=== PATIENT | female | born 1990 | race African-American/Black ===

== ENCOUNTER 2017-04-09 03:39 | Emergency (ER) | payer BC ==
[2017-04-09] MEDS ORDERED: HYDROcodone/Acetaminophen 10/325 mg Tablet ONE (04:09)
[2017-04-09] MEDS ORDERED: Mag-Al 1200 mg/1200 mg/30 ML UDCUP ONE (04:10)
[2017-04-09] MEDS ORDERED: Lidocaine Viscous Sol 2% 15 ml UD Cup ONE (04:10)
[2017-04-09 04:26] LABS: #Basophils 0.1 thou/uL (0.0-0.2); #Eosinphils 0.1 thou/uL (0.0-0.7); #Lymphocytes 1.6 thou/uL (1.20-3.40); #Monocytes 0.4 thou/uL (0.11-0.59); #Neutrophils 4.4 thou/uL (1.40-6.50); %Basophils 0.8 % (0.0-1.0); %Lymphocytes 24.7 % (21.0-51.0); %Monocytes 5.6 % (0.0-10.0); Hematocrit 40.1 % (36.0-47.0); Mean Platelet Volume 7.4 fL (7.4-10.4); Red Blood Cell (RBC) Count 4.28 mill/uL (4.20-5.40); White Blood Cell (WBC) Count 6.5 thou/uL (4.8-10.8)
[2017-04-09 04:46] LABS: ALT (SGPT) 15 U/L (8-55); AST (SGOT) 22 U/L (5-34); Alkaline Phosphatase 40 U/L (40-150); Anion Gap 10 mmol/L (10-20); BUN (Urea Nitrogen) 9 mg/dL (7.0-18.7); Bilirubin, Total 0.4 mg/dL (0.2-1.2); Calc. Creatinine Clearance 0 mL/min (70-130); Calcium 9.7 mg/dL (7.8-10.44); Carbon Dioxide 26 mmol/L (22-29); Chloride 104 mmol/L (98-107); Estimated GFR-MDRD Greater than 90; Globulin 3.3 g/dL (2.4-3.5); Lipase 24 U/L (8-78); Protein, Total 7.3 g/dL (6.0-8.3)
--- NOTE | 2017-04-09 08:02 | ULT ---
PRELIMINARY REPORT/[facility]/EMERGENCY AFTER HOURS PROCEDURE: EXAM: US Abdomen Limited, Right Upper Quadrant EXAM DATE/TIME: Exam ordered 04/09/2017 4:16 AM CLINICAL HISTORY: 26 years old, female; Pain and signs and symptoms; Nausea; Abdominal pain; Other: Epigastric to ruq; Patient HX: Abd pain x 6 month (on/off), worse tonight TECHNIQUE: Real-time ultrasound of the right upper quadrant with image documentation. COMPARISON: No relevant prior studies available. FINDINGS: Liver: Normal. No mass. No intrahepatic bile duct dilation. Gallbladder: Cholelithiasis is present. A negative sonographic Hollins sign is reported. Gallbladder wall thickness measures approximately 2 mm per Common bile duct: Common bile duct measures approximately 4 mm. No stones. No dilation. Pancreas: The visualized pancreas is unremarkable. Right kidney: The RIGHT kidney measures 11.4 x 4.5 x 5.2 cm. No stones. No hydronephrosis. IMPRESSION: Cholelithiasis is present. No ultrasound evidence for acute cholecystitis. Thank you for allowing us to participate in the care of your patient. Dictated and Authenticated by: Hussein Quinn MD 04/09/2017 4:59 AM Central Time ([place] \T\ [place]) FINAL REPORT RIGHT UPPER QUADRANT ULTRASOUND: I agree with the preliminary report given by Dr. Hussein Quinn of [facility]. POS: [facility]
== END 2017-04-09 05:11 | disposition home or self-care (01) ==
LOC: MERGE 03:39 → ERS 03:39
DX: K80.20 Calculus of gallbladder without cholecystitis without obstruction (principal)
CPT/HCPCS: 36415; 76705; 80053; 83690; 84703; 85025

== ENCOUNTER 2020-01-03 15:35 | Emergency (ER) | payer BC, OTHER ==
[2020-01-04 14:44] LABS: SARS-CoV-2 MS2 Positive; SARS-CoV-2 N Gene Negative; SARS-CoV-2 S Gene Negative; SARS-CoV-2 orf1ab Negative
== END 2020-01-03 16:30 | disposition home or self-care (01) ==
LOC: ERS 15:35
DX: Z20.828 Contact with and (suspected) exposure to other viral communicable diseases (principal)
CPT/HCPCS: 87635; 99283; U0003